=== PATIENT | female | born 1975 | race Caucasian/White ===

== ENCOUNTER 2017-08-19 16:34 | Outpatient (CLI) | payer OTHER ==
--- NOTE | 2017-08-20 18:28 | Mammography Report ---
DIGITAL SCREENING MAMMOGRAM: 08/19/2017 CLINICAL INDICATION: A 42-year-old with family history of breast cancer for screening. TECHNIQUE: Routine CC and MLO projections were obtained of the breasts. The breasts demonstrate scattered fibroglandular densities bilaterally. Punctate, typically benign c alcifications are present. No suspicious masses, clustered microcalcifications, or regions of suellen ectural distortion are identified. IMPRESSION: BENIGN FINDINGS. RECOMMENDATION: ROUTINE ANNUAL SCREENING UNLESS OTHERWISE CLINICALLY INDICATED. BIRADS CATEGORY: 2, BENIGN FINDINGS. STANDARD QUALIFYING STATEMENTS 1. This examination was reviewed with the aid of Computed-Aided Detection (CAD). 2. A negative or benign imaging report should not delay biopsy if clinically suspicious findings are present. Consider surgical consultation if warranted. More than 5% of cancers are not identified b y imaging. 3. Dense breasts may obscure an underlying neoplasm. JOB #: [id number] EXT JOB #:[id number]
== END 2017-08-19 16:35 | disposition home or self-care (01) ==
LOC: DI 16:34
PROVIDERS: ATTEND Family Medicine
DX: Z12.31 Encounter for screening mammogram for malignant neoplasm of breast (principal); Z80.3 Family history of malignant neoplasm of breast
CPT/HCPCS: 77067

== ENCOUNTER 2017-09-02 07:52 | Outpatient (CLI) | payer OTHER ==
--- NOTE | 2017-09-02 09:33 | MRI Report ---
EXAM: MRI BRAIN WITHOUT CONTRAST EXAM DATE: 09/02/2017 08:50 AM. CLINICAL HISTORY: Tremor left hand. COMPARISON: None. TECHNIQUE: Multiplanar, multisequence T1-weighted and fluid-sensitive MR sequences of the brain were performed. Sequences optimized for routine evaluation. Other: None. IV Contrast: None. FINDINGS: Brain Volume: Normal for age. Parenchyma/Dura: No mass, acute infarct or hemorrhage. There are a few scattered foci of subcortical and deep white matter T2 and FLAIR bright signal noted in the cerebral hemispheres. Ventricles/Cisterns: No hydrocephalus. No abnormal extra-axial fluid collection or hemorrhage. Orbits: The globes, optic nerve sheath complex, extraocular muscles, and orbital fat are unremarkable . Sella turcica: The pituitary gland, cavernous sinuses, suprasellar cistern, and optic chiasm are unre markable. IAC: The internal auditory canals and cerebellopontine angle cisterns are symmetric and unremarkable. Vasculature: Normal signal flow void is seen in the major arterial structures at the skull base. Sinuses: No acute sinusitis. Small focus of polypoid mucosal thickening is seen in the left sphenoid sinus. Trace mucosal thickening is seen involving inferior right mastoid air cells. Bones: No focal pathologic appearing marrow signal changes. Other: None. IMPRESSION: 1. No acute intracranial abnormality. 2. Mild scattered punctate foci of white matter T2/FLAIR bright signal seen in the cerebral hemispher es. Findings are nonspecific. This can be seen in patients with migraine headaches or secondary to sm all vessel ischemic change. No callosal or lateral callosal involvement is seen to suggest demyelinat ion. Referring Provider Line: [phone] SITE ID: [id number]
== END 2017-09-02 07:53 | disposition home or self-care (01) ==
LOC: DI 07:52
PROVIDERS: ATTEND Family Medicine
DX: R25.1 Tremor, unspecified (principal)
CPT/HCPCS: 70551

== ENCOUNTER 2018-09-05 08:20 | Outpatient (CLI) | payer OTHER ==
--- NOTE | 2018-09-08 12:45 | Mammography Report ---
Reason: SCREEN w KARRI Procedure Date: 09/05/2018 Accession Number: [id number] / [id number] Procedure: KEVON - Screening Mammo w/Karri CPT Code: FULL RESULT: EXAM: Screening Mammo w/Karri DATE: 09/05/2018 8:43 AM CLINICAL HISTORY: 43-year-old female with family history of breast cancer in a sister in her early 20s. TECHNIQUE: Bilateral CC and MLO views were obtained. COMPARISON: 08/19/2017. FINDINGS: The breasts demonstrate heterogeneously dense fibroglandular parenchyma bilaterally. A coarse typically benign calcification is seen in the right breast. No suspicious masses, clustered microcalcifications, or regions of architectural distortion are identified. IMPRESSION: Benign findings RECOMMENDATION: Routine annual screening unless otherwise clinically indicated. BIRADS CATEGORY 2: Benign findings STANDARD QUALIFYING STATEMENTS: 1. This examination was not reviewed with the aid of Computer-Aided Detection (CAD). 2. A negative or benign imaging report should not delay biopsy if clinically suspicious findings are present. Consider surgical consultation if warrented. More than 5% of cancers are not identified by imaging. 3. Dense breasts may obscure an underlying neoplasm. 4. This examination was reviewed with the aid of 3D breast imaging (tomosynthesis).
== END 2018-09-05 08:21 | disposition home or self-care (01) ==
LOC: DI 08:20
DX: Z12.31 Encounter for screening mammogram for malignant neoplasm of breast (principal); Z80.3 Family history of malignant neoplasm of breast
CPT/HCPCS: 77063; 77067

== ENCOUNTER 2021-03-31 12:00 | Outpatient (CLI) | payer OTHER ==
--- NOTE | 2021-03-31 14:54 | CT Report ---
PROCEDURE: Sinuses INDICATIONS: CHRONIC PANSINUSITIS TECHNIQUE: Noncontrast 3.0 mm axial images acquired from the frontal sinuses to the mid-sella, with coronal and sagittal reformats. For radiation dose reduction, the following was used: automated exposure control , adjustment of mA and/or kV according to patient size. COMPARISON: Correlation is made with overlapping portions of prior brain MRI, 09/02/2017 FINDINGS: Image quality: Excellent. Maxillary Sinuses: No bony remodeling or destruction. Minimal mucosal thickening is seen within the inferior maxillary sinuses. Ethmoid Air Cells: No bony remodeling or destruction. Sinuses are clear. Sphenoid Sinuses: No bony remodeling or destruction. Sinuses are clear. Frontal Sinuses: No bony remodeling or destruction. Sinuses are clear. Ostiomeatal Complexes: Ostiomeatal complexes are patent, yet they are constitutionally narrowed, wit h bilateral Tamara cells. Miscellaneous: Visualized intra-orbital contents are normal. No mattie bullosa. No significant maurisio al septal deviation. IMPRESSION: No significant active paranasal sinus disease is seen, with minimal mucosal thickening within the inf erior maxillary sinuses. The ostiomeatal complexes are constitutionally narrowed, with bilateral Tamara cells seen Reviewed by: Philip Schmid MD on 03/31/2021 1:53 PM STEFFANIE Approved by: Philip Schmid MD on 03/31/2021 1:53 PM AKPETTY Station ID: [id number]
== END 2021-03-31 12:01 | disposition home or self-care (01) ==
LOC: DI 12:00
PROVIDERS: ATTEND Otolaryngology
DX: J32.4 Chronic pansinusitis (principal)

== ENCOUNTER 2021-05-23 11:25 | Outpatient (CLI) | payer OTHER ==
[2021-05-23 18:03] LABS: BASOPHILS % (AUTO) 0.4 %; EOSINOPHILS # (AUTO) 0.1 10^3/uL (0.0-0.7); EOSINOPHILS % (AUTO) 1.3 %; HCT - HEMATOCRIT 47.6 % (37.0-47.0); HGB - HEMOGLOBIN 15.2 g/dL (12.0-16.0); LYMPHOCYTES # (AUTO) 1.5 10^3/uL (1.5-3.5); LYMPHOCYTES % (AUTO) 21.3 %; MEAN CORPUSCULAR HEMOGLOBIN 31.7 pg (27.0-31.0); MEAN CORPUSCULAR HGB CONC 31.9 g/dL (32.0-36.0); MEAN CORPUSCULAR VOLUME 99.4 fL (81.0-99.0); MEAN PLATELET VOLUME 10.7 fL (7.9-10.8); MONOCYTES # (AUTO) 0.5 10^3/uL (0.0-1.0); MONOCYTES % (AUTO) 7.8 %; NEUTROPHILS # (AUTO) 4.8 10^3/uL (1.5-6.6); NEUTROPHILS % (AUTO) 68.6 %; PLT - PLATELET COUNT 197 10^3/uL (130-450); RED BLOOD COUNT 4.79 10^6/uL (4.20-5.40); RED CELL DISTRIBUTION WIDTH 13.4 % (12.0-15.0)
[2021-05-23 18:32] LABS: THYROID STIMULATING HORMONE 0.95 uIU/mL (0.34-5.60)
[2021-05-23 18:35] LABS: ALBUMIN 3.9 g/dL (3.2-5.5); ALBUMIN/GLOBULIN RATIO 1.4 (1.0-2.2); ALKALINE PHOSPHATASE 70 IU/L (42-121); ALT ALANINE AMINOTRANSFERASE 22 IU/L (10-60); AST ASPARTATE AMINOTRANSFERASE 19 IU/L (10-42); BILIRUBIN,TOTAL 0.7 mg/dL (0.2-1.0); BUN - BLOOD UREA NITROGEN 12 mg/dL (6-20); CALCIUM 9.1 mg/dL (8.5-10.3); CARBON DIOXIDE - CO2 26 mmol/L (21-32); CHLORIDE 98 mmol/L (101-111); CHOL/HDL RATIO 2.7 (<4.4); CHOLESTEROL 250 mg/dL; CREATININE 0.9 mg/dL (0.4-1.0); GFR - MDRD 68 (>89); GLUCOSE 138 mg/dL (70-100); HDL CHOLESTEROL 93 mg/dL; LDL CHOLESTEROL,CALCULATED 132 mg/dL; LDL/HDL RATIO 1.4 (<4.4); POTASSIUM 4.5 mmol/L (3.5-5.0); SODIUM 137 mmol/L (135-145); TOTAL PROTEIN 6.7 g/dL (6.7-8.2); TRIGLYCERIDES 127 mg/dL; VLDL CHOLESTEROL 25 mg/dL
[2021-05-23 19:58] LABS: ESTIMATED AVERAGE GLUCOSE 97 mg/dL (70-100)
== END 2021-05-23 23:59 | disposition home or self-care (01) ==
LOC: LAB.WCP 11:25
PROVIDERS: ATTEND Nurse Practitioner
DX: Z00.00 Encounter for general adult medical examination without abnormal findings (principal); Z13.220 Encounter for screening for lipoid disorders; E66.9 Obesity, unspecified; R53.83 Other fatigue
CPT/HCPCS: 36415; 80053; 80061; 83036; 83721; 84443; 85025

== ENCOUNTER 2021-06-20 11:22 | Outpatient (CLI) | payer OTHER ==
--- NOTE | 2021-06-21 14:40 | Mammography Report ---
BILATERAL DIGITAL SCREENING MAMMOGRAM 3D/2D: 06/20/2021 CLINICAL: Routine screening. Comparison is made to exams dated: 09/05/2018 mammogram and 08/19/2017 mammogram - [facility]. The tissue of both breasts is heterogeneously dense. This may lower the sensitivity of m ammography. No significant masses, calcifications, or other findings are seen in either breast. There has been no significant interval change. IMPRESSION: NEGATIVE There is no mammographic evidence of malignancy. A 1 year screening mammogram is recommended. This exam was interpreted at Station ID: [id number]. NOTE: For mammograms, a report in lay terms will be sent to the patient. Approximately 15% of breast malignancies will not be visualized mammographically. In the management of a palpable breast mass, a negative mammogram must not discourage biopsy of a clinically suspicious lesion. Electronically Signed By: Tad Valles M.D. ar/tamrarad:06/20/2021 12:25:52 ACR BI-RADS Category 1: Negative 3341F PARENCHYMAL PATTERN: (D) - The breast(s) demonstrate(s) heterogeneously dense fibroglandular cecil moses. BI-RADS CATEGORY: (1) - 1 RECOMMENDATION: (ANNUAL) - Recommend routine annual screening mammography. [id number] 1 year screening LATERALITY: (B)
== END 2021-06-20 11:23 | disposition home or self-care (01) ==
LOC: DI 11:22
DX: Z12.31 Encounter for screening mammogram for malignant neoplasm of breast (principal)

== ENCOUNTER 2022-05-03 11:28 | Outpatient (CLI) | payer OTHER ==
[2022-05-03 18:19] LABS: THYROID STIMULATING HORMONE 0.91 uIU/mL (0.34-5.60)
[2022-05-03 18:23] LABS: FREE T4 (FREE THYROXINE) 0.81 ng/dL (0.58-1.64)
== END 2022-05-03 11:29 | disposition home or self-care (01) ==
LOC: LAB.N 11:28
PROVIDERS: ATTEND Nurse Practitioner
DX: R53.83 Other fatigue (principal)
CPT/HCPCS: 36415; 84439; 84443

== ENCOUNTER 2022-07-11 13:29 | Outpatient (CLI) | payer OTHER ==
--- NOTE | 2022-07-12 10:36 | Mammography Report ---
BILATERAL DIGITAL SCREENING MAMMOGRAM 3D/2D: 07/11/2022 CLINICAL: Routine screening. Comparison is made to exams dated: 06/20/2021 mammogram, 09/05/2018 mammogram, and 08/19/2017 mammogra m - [facility]. Both breasts are heterogeneously dense, which may obscure small masses (category c / 51-75% glandula r tissue). No significant masses, calcifications, or other findings are seen in either breast. There has been no significant interval change. IMPRESSION: NEGATIVE There is no mammographic evidence of malignancy. A 1 year screening mammogram is recommended. Based on Tyrer-Cuzick model (a risk assessment model), the patient's lifetime risk is 24.9% and her 1 0 year risk is 5.4%. If a patient has an elevated risk, a more comprehensive evaluation should be con sidered and/or a referral to a genetic counselor. The [place] [employer], [employer] [place] [employer], and NCCN Guidelines advise the consideration of Breast MRI as an adjunct to screening mammog ward in patients whose "Lifetime risk to develop breast cancer" is 20% or higher. This exam was interpreted at Station ID: [id number]. NOTE: For mammograms, a report in lay terms will be sent to the patient. Approximately 15% of breast malignancies will not be visualized mammographically. In the management of a palpable breast mass, a negative mammogram must not discourage biopsy of a clinically suspicious lesion. Electronically Signed By: Ross Almeida M.D., jr/melissa:07/11/2022 15:41:37 ACR BI-RADS Category 1: Negative 3341F PARENCHYMAL PATTERN: (D) - The breast(s) demonstrate(s) heterogeneously dense fibroglandular parenchy ma. BI-RADS CATEGORY: (1) - 1 RECOMMENDATION: (ANNUAL) - Recommend routine annual screening mammography. [id number] 1 year screening LATERALITY: (B)
== END 2022-07-11 13:30 | disposition home or self-care (01) ==
LOC: DI 13:29
DX: Z12.31 Encounter for screening mammogram for malignant neoplasm of breast (principal)

== ENCOUNTER 2022-12-15 12:58 | Emergency (ER) | payer OTHER ==
[2022-12-15 13:07] VITALS: BP 167/106
[2022-12-15] MEDS ORDERED: KETOROLAC 30 MG/ML VIAL IM STA (13:21)
--- NOTE | 2022-12-15 13:24 | ED Physician Documentation ---
History of Present Illness - Stated complaint Stated Complaint: L BACK PX - Chief complaint Chief Complaint: Back Pain - Additonal information Additional information: 47-year-old female presents emergency department for evaluation of acute low left back pain. Began about 4 days ago. She noticed a pain deep within her low back and buttock area that did not radiate. Initially she took Tylenol and Motrin which she found helpful but over the next 3 days nothing has helped. She has difficulty finding positions of comfort either sitting laying or standing. Walking is uncomfortable. She has had no fevers. No saddle anesthesia. No lo ss of bowel or bladder function. Patient is not a diabetic. Patient denies that the pain radiates through the buttock or down the leg. She does have a history of sciatica but feels that this is different. She does look uncomfortable in the exam area History provided by patient. Reliable historian Review of Systems Constitutional: denies: Fever, Chills Musculoskeletal: reports: Back pain PD PAST MEDICAL HISTORY - Present Medications Home Medications: Ambulatory Orders Medication Instructions Recorded Confirmed methylPREDNISolone [Medrol] 4 mg PO DAILY #1 tab 12/15/22 - Allergies Allergies/Adverse Reactions: Allergies Allergy/AdvReac Type Severity Reaction Status Date / Time No Known Drug Allergies Allergy Verified 12/15/22 13:07 PD ED PE EXPANDED - General General: Alert, No acute distress, Other (Obese) - Back Back: Soft tissue tenderness (Focal tenderness elicited with deep palpation only over the left SI region. It does not radiate. Patient is able to ambulate independently though mildly antalgic. Patellar reflexes 2+ bilaterally. Normal sensation. Motor strength 5 of 5). No: Vertebral tenderness (No vertebral tenderness elicited with palpation of the thoracic or lumbar spine.), Straight leg raise + R, Straight leg raise + L, CVA TTP right Results - Vitals Vitals: Vital Signs - 24 hr 12/15/22 13:02 Temperature 36.6 C Heart Rate 80 Respiratory 18 Rate Blood Pressure 167/106 H O2 Saturation 100 Oxygen O2 Source Room air PD Medical Decision Making - ED course Complexity details: considered differential, d/w patient ED course: 47-year-old female presents emergency department for evaluation of 4 days focalized left lower back/buttock pain. I elicit most of the tenderness right over the SI joint. She does have mildly reduced forward flexion of the lumbar spine secondary to pain. There are no red flags. She is able to ambulate independently though she is somewhat tender. She has tried routine conservative therapy including Motrin and Tylenol at home. Clinically I do not have any suspicion for fracture given lack of trauma. History and exam not suggestive of spinal epidural process. She has a negative straight leg exam and without radiation of pain I have lower suspicion for sciatica. Given the focal tenderness over the SI joint I do suspect SI inflammation. I discussed treatment options with the patient and she would like to try a short course of steroids so a Medrol Dosepak has been sent to her pharmacy. I am recommending Tylenol while on the Dosepak and then to begin alternating Tylenol Motrin once off of it. She will follow closely with her primary care provider. She likely would benefit from moderate weight loss, physical therapy. If conservative measures still not working may then consider MRI as an outpatient. We did discuss the usual return precautions for low back pain as well as red flags. Departure - Departure Disposition: Home, Self Care Clinical Impression: SI (sacroiliac) joint inflammation Instructions: Medrol Dose Pack Prescriptions: methylPREDNISolone [Medrol] 4 mg PO DAILY #1 tab Comments: Riddhi weaver came to the emergency department because for the last 4 days you have been having some pain in your left lower back. The pain seems to be coming from your SI joint which is where the sacrum attaches to the pelvis. I agree that this back pain is different than your typical sciatica. Because ibuprofen and Tylenol have not been helping your pain at home I think you would benefit from a short course of steroids. A Medrol Dosepak has been sent to the [facility] in [place]. I expect that this will start to reduce the inflammation and make your pain better over the next 24 to 48 hours. As your pain begins to improve I recommend that you look up SI stretching exercises and begin doing them daily. While on the steroids I would like you to take Tylenol 500 mg with food 4 times a day. Once you are done with the steroids you can alternate Tylenol with 600 mg of Motrin also 3-4 times a day. It is important you follow closely with your primary care provider. Back pain such as this tends to recur. Moderate weight loss can be helpful but referral to physical therapy is also very helpful in the long-term to help teach you coping and management exercises. If conservative therapy such as this as well as physical therapy does not make her symptoms better in the long-term your primary care doctor may want to consider outpatient imaging such as an MRI though that is not indicated today. If at any point you find that your symptoms suddenly worsen, you develop fevers, you lose control of your bowel or bladder function or have numbness in your genital area you should return immediately to the ER for a second evaluation
== END 2022-12-15 13:44 | disposition home or self-care (01) ==
LOC: ED 12:58
DX: M46.1 Sacroiliitis, not elsewhere classified (principal)
CPT/HCPCS: 96372; 99283

== ENCOUNTER 2023-02-12 10:37 | Outpatient (CLI) | payer OTHER ==
[2023-02-12 18:20] LABS: BASOPHILS # (AUTO) 0.1 10^3/uL (0.0-0.1); BASOPHILS % (AUTO) 0.8 %; EOSINOPHILS # (AUTO) 0.1 10^3/uL (0.0-0.7); EOSINOPHILS % (AUTO) 1.7 %; HCT - HEMATOCRIT 45.9 % (37.0-47.0); HGB - HEMOGLOBIN 14.5 g/dL (12.0-16.0); LYMPHOCYTES # (AUTO) 1.4 10^3/uL (1.5-3.5); LYMPHOCYTES % (AUTO) 23.3 %; MEAN CORPUSCULAR HEMOGLOBIN 30.6 pg (27.0-31.0); MEAN CORPUSCULAR HGB CONC 31.6 g/dL (32.0-36.0); MEAN CORPUSCULAR VOLUME 96.8 fL (81.0-99.0); MEAN PLATELET VOLUME 10.4 fL (7.9-10.8); MONOCYTES # (AUTO) 0.5 10^3/uL (0.0-1.0); MONOCYTES % (AUTO) 7.8 %; NEUTROPHILS # (AUTO) 3.9 10^3/uL (1.5-6.6); NEUTROPHILS % (AUTO) 66.2 %; PLT - PLATELET COUNT 262 10^3/uL (130-450); RED BLOOD COUNT 4.74 10^6/uL (4.20-5.40); RED CELL DISTRIBUTION WIDTH 12.4 % (12.0-15.0); WHITE BLOOD COUNT 5.9 x10^3/uL (4.8-10.8)
[2023-02-12 18:35] LABS: ALBUMIN/GLOBULIN RATIO 1.3 (1.0-2.2); ALKALINE PHOSPHATASE 72 IU/L (42-121); ALT ALANINE AMINOTRANSFERASE 24 IU/L (10-60); AST ASPARTATE AMINOTRANSFERASE 20 IU/L (10-42); BILIRUBIN,TOTAL 0.5 mg/dL (0.2-1.0); BUN - BLOOD UREA NITROGEN 14 mg/dL (6-20); CALCIUM 9.1 mg/dL (8.5-10.3); CARBON DIOXIDE - CO2 26 mmol/L (21-32); CHLORIDE 100 mmol/L (101-111); CHOL/HDL RATIO 2.9 (<4.4); CHOLESTEROL 254 mg/dL; CREATININE 0.8 mg/dL (0.4-1.0); GFR - MDRD 77 (>89); GLUCOSE 100 mg/dL (70-100); HDL CHOLESTEROL 89 mg/dL; LDL CHOLESTEROL,CALCULATED 143 mg/dL; LDL/HDL RATIO 1.6 (<4.4); POTASSIUM 4.6 mmol/L (3.5-5.0); SODIUM 137 mmol/L (135-145); TRIGLYCERIDES 109 mg/dL; VLDL CHOLESTEROL 22 mg/dL
[2023-02-12 18:47] LABS: THYROID STIMULATING HORMONE 0.82 uIU/mL (0.34-5.60)
== END 2023-02-12 10:38 | disposition home or self-care (01) ==
LOC: LAB.N 10:37
PROVIDERS: ATTEND Nurse Practitioner
DX: I10 Essential (primary) hypertension (principal); Z13.220 Encounter for screening for lipoid disorders; Z12.11 Encounter for screening for malignant neoplasm of colon; E66.01 Morbid (severe) obesity due to excess calories
CPT/HCPCS: 36415; 80053; 80061; 83721; 84443; 85025

== ENCOUNTER 2023-02-15 13:40 | Outpatient (CLI) | payer OTHER ==
[2023-02-15 14:22] LABS: FECAL OCCULT BLOOD (FIT) NEGATIVE (NEGATIVE)
== END 2023-02-15 13:41 | disposition home or self-care (01) ==
LOC: LAB 13:40
PROVIDERS: ATTEND Nurse Practitioner
DX: Z12.11 Encounter for screening for malignant neoplasm of colon (principal)
CPT/HCPCS: 82274

== ENCOUNTER 2023-07-12 09:42 | Outpatient (CLI) | payer OTHER ==
--- NOTE | 2023-07-12 16:30 | Mammography Report ---
BILATERAL DIGITAL SCREENING MAMMOGRAM 3D/2D: 07/12/2023 CLINICAL: Routine screening. Comparison is made to exams dated: 07/11/2022 mammogram, 06/20/2021 mammogram, 09/05/2018 mammogram, a nd 08/19/2017 mammogram - [facility]. There are scattered areas of fibroglandular density in both breasts (category b / 25%-50% glandular t issue). No significant masses, calcifications, or other findings are seen in either breast. There has been no significant interval change. IMPRESSION: NEGATIVE There is no mammographic evidence of malignancy. A 1 year screening mammogram is recommended. Based on the Tyrer Cuzick model (a risk assessment model) the patients lifetime risk is 13.4% and he r 10 year risk is 2.9%. According to the ACR, ACS, and NCCN guidelines, an annual breast MRI exam jose l ng with mammogram is recommended if the patients lifetime risk is 20% or greater. This exam was interpreted at Station ID: [id number]. NOTE: For mammograms, a report in lay terms will be sent to the patient. Approximately 15% of breast malignancies will not be visualized mammographically. In the management of a palpable breast mass, a negative mammogram must not discourage biopsy of a clinically suspicious lesion. Electronically Signed By: Chelly stovall/melissa:07/12/2023 14:57:35 letter sent: No_Letter ACR BI-RADS Category 1: Negative 3341F PARENCHYMAL PATTERN: (A) - The breast(s) demonstrate(s) scattered fibroglandular densities. BI-RADS CATEGORY: (1) - 1 Mammogram [id number] 1 year screening LATERALITY: (B)
== END 2023-07-12 09:43 | disposition home or self-care (01) ==
LOC: DI 09:42
DX: Z12.31 Encounter for screening mammogram for malignant neoplasm of breast (principal)

== ENCOUNTER 2024-03-08 08:00 | Outpatient (CLI) | payer OTHER ==
[2024-03-08 16:11] LABS: FECAL OCCULT BLOOD (FIT) NEGATIVE (NEGATIVE)
== END 2024-03-08 23:59 | disposition home or self-care (01) ==
LOC: LAB.R 08:00
PROVIDERS: ATTEND Nurse Practitioner
DX: Z12.11 Encounter for screening for malignant neoplasm of colon (principal)
CPT/HCPCS: 82274

== ENCOUNTER 2024-05-28 12:45 | Outpatient (CLI) | payer OTHER ==
[2024-05-28 12:56] LABS: BASOPHILS % (AUTO) 0.6 %; EOSINOPHILS # (AUTO) 0.1 10^3/uL (0.0-0.7); EOSINOPHILS % (AUTO) 1.4 %; HCT - HEMATOCRIT 46.9 % (37.0-47.0); HGB - HEMOGLOBIN 15.4 g/dL (12.0-16.0); LYMPHOCYTES # (AUTO) 1.7 10^3/uL (1.5-3.5); LYMPHOCYTES % (AUTO) 27.2 %; MEAN CORPUSCULAR HEMOGLOBIN 30.9 pg (27.0-31.0); MEAN CORPUSCULAR HGB CONC 32.8 g/dL (32.0-36.0); MEAN PLATELET VOLUME 9.6 fL (7.9-10.8); MONOCYTES # (AUTO) 0.6 10^3/uL (0.0-1.0); MONOCYTES % (AUTO) 9.7 %; NEUTROPHILS # (AUTO) 3.9 10^3/uL (1.5-6.6); NEUTROPHILS % (AUTO) 60.8 %; PLT - PLATELET COUNT 225 10^3/uL (130-450); RED BLOOD COUNT 4.99 10^6/uL (4.20-5.40); RED CELL DISTRIBUTION WIDTH 12.8 % (12.0-15.0); WHITE BLOOD COUNT 6.4 x10^3/uL (4.8-10.8)
[2024-05-28 13:10] LABS: ALBUMIN 3.8 g/dL (3.2-5.5); ALBUMIN/GLOBULIN RATIO 1.5 (1.0-2.2); ALKALINE PHOSPHATASE 66 IU/L (42-121); ALT ALANINE AMINOTRANSFERASE 12 IU/L (10-60); AST ASPARTATE AMINOTRANSFERASE 11 IU/L (10-42); BILIRUBIN,TOTAL 0.6 mg/dL (0.2-1.0); BUN - BLOOD UREA NITROGEN 10 mg/dL (6-20); CALCIUM 9.4 mg/dL (8.5-10.3); CARBON DIOXIDE - CO2 26 mmol/L (21-32); CHLORIDE 104 mmol/L (101-111); CHOL/HDL RATIO 2.9 (<4.4); CHOLESTEROL 237 mg/dL; CREATININE 0.8 mg/dL (0.6-1.3); GFR - MDRD 77 (>89); GLUCOSE 103 mg/dL (74-104); HDL CHOLESTEROL 81 mg/dL; LDL CHOLESTEROL,CALCULATED 130 mg/dL; LDL/HDL RATIO 1.6 (<4.4); POTASSIUM 4.2 mmol/L (3.5-4.5); SODIUM 137 mmol/L (135-145); TOTAL PROTEIN 6.4 g/dL (6.4-8.9); TRIGLYCERIDES 131 mg/dL; VLDL CHOLESTEROL 26 mg/dL
== END 2024-05-28 12:46 | disposition home or self-care (01) ==
LOC: LAB 12:45
PROVIDERS: ATTEND Nurse Practitioner
DX: I10 Essential (primary) hypertension (principal); Z13.220 Encounter for screening for lipoid disorders; E66.01 Morbid (severe) obesity due to excess calories
CPT/HCPCS: 36415; 80053; 80061; 83721; 84443; 85025

== ENCOUNTER 2024-07-07 11:20 | Outpatient (CLI) | payer OTHER | END 2024-07-07 11:21 | disposition home or self-care (01) | LOC: LAB 11:20 | PROVIDERS: ATTEND Nurse Practitioner | DX: N95.9 Unspecified menopausal and perimenopausal disorder (principal) | CPT/HCPCS: 36415; 83001; 83002 ==